=== PATIENT | female | born 1945 | race Two or more races ===

== ENCOUNTER → 2024-05-15 | Outpatient (CLI) | payer MEDICARE, MEDICAID, SELFPAY ==
--- NOTE | 2024-05-15 12:33 | XR_ITS ---
Examination: PA lateral chest 2 views TECHNIQUE: Upright PA lateral chest 2 views Exam date and time: May 15, 2024 1240 hours INDICATIONS: Coughing today. FINDINGS: Minimal opacity left base Right lung clear Normal heart size IMPRESSION: Suspicious for early pneumonia left base
== END | disposition home or self-care (01) ==
LOC: CDIM 12:08
PROVIDERS: PCP Family Medicine; Referring Provider Nurse Practitioner Family; Visit Provider Nurse Practitioner Family
DX: R05.9 Cough, unspecified (principal)
CPT/HCPCS: 71046

== ENCOUNTER → 2024-05-22 | Outpatient (CLI) | payer MEDICARE, MEDICAID, SELFPAY ==
--- NOTE | 2024-05-22 | XR_ITS ---
Examination: Shoulder,right, 3 views Technique: Shoulder AP internal rotation, AP external rotation, Y view shoulder, 3 views Exam date and time :May 2024 1 hours Indications: Beginning 3 days ago. Findings: No shoulder fracture or dislocation Moderate narrowing glenohumeral joint Mild calcific tendinitis Impression: Mild calcific tendinitis
== END | disposition home or self-care (01) ==
PROVIDERS: PCP Nurse Practitioner Family; Referring Provider Nurse Practitioner Family; Visit Provider Nurse Practitioner Family
DX: M75.31 Calcific tendinitis of right shoulder (principal)
CPT/HCPCS: 73030

== ENCOUNTER → 2024-07-25 | Outpatient (CLI) | payer MEDICARE, MEDICAID, SELFPAY ==
--- NOTE | 2024-07-25 08:13 | XR_ITS ---
Examination: PA lateral chest 2 views TECHNIQUE: Upright PA lateral chest 2 views Date and time: July 25, 2024 0845 hours Comparison May 15, 2024 INDICATIONS: Coughing several days. FINDINGS: Normal heart size. Lungs are clear. Mild thoracic spondylosis IMPRESSION: No active disease
== END | disposition home or self-care (01) ==
LOC: CDIM 07:57
PROVIDERS: PCP Nurse Practitioner Family; Referring Provider Nurse Practitioner Family; Visit Provider Nurse Practitioner Family
DX: R05.9 Cough, unspecified (principal)
CPT/HCPCS: 71046